=== PATIENT | male | born 1960 | race Caucasian/White ===

== ENCOUNTER 2021-02-23 20:08 | Emergency (ER) | payer BC, SELFPAY ==
--- NOTE | 2021-02-23 21:14 | XR_ITS ---
PROCEDURE INFORMATION: Exam: XR Left Wrist Exam date and time: 02/23/2021 9:14 PM Age: 60 years old Clinical indication: Injury or trauma; Other: Puncture wound to left wrist. ; Laceration; Patient HX: Patient was striking a piece of metal when a small piece broke off and went into his left wrist. Puncture site marked with ink pen. ; Additional info: Piece of steel hit wrist TECHNIQUE: Imaging protocol: XR Left wrist. Views: 3 or more views. COMPARISON: No relevant prior studies available. FINDINGS: Bones/joints: No evidence of acute fracture Soft tissues: 0.4 cm metallic foreign body in the soft tissues dorsally. IMPRESSION: 0.4 cm metallic foreign body in the soft tissues dorsally.
[2021-02-23 21:16] VITALS: BP 137/85; PULSE 74; RESP 19; TEMP 36.8; O2SAT 98; BMI 25.8
[2021-02-23 21:47] VITALS: BP 137/85; PULSE 74; RESP 19; TEMP 36.8; O2SAT 98
--- NOTE | 2021-02-23 22:08 | PC.NURSE ---
SOCIAL SERVICE DIRECTOR talking with
--- NOTE | 2021-02-23 22:13 | HMH.EDUTC ---
[facility] [place] Disposition Clinical Impression: Laceration of left hand with foreign body Qualifiers: Encounter type: initial encounter Qualified Code(s): S61.422A - Laceration with foreign body of left hand, initial encounter Disposition: Home, Self-Care Condition on Discharge: Good Instructions: DI for Removal of Foreign Body From Skin Additional Instructions: I spoke to Dr. Vasquez (orthopedics) regarding your hand. Since there are very important nerves and tendons in that part of your hand you need to see the orthopedic doctor for removal of this foreign body. Please call Dr. Vasquez's office first thing in the morning (after 8:00 am). Please be NPO after midnight tonight. You can eat and drink before midnight, but nothing by mouth after midnight because Dr. Vasquez plans to take you to surgery to remove this piece of metal. Take the antibiotics as directed. Once you see Dr. Vasquez, please follow his instructions and his medication guidance instead of mine. GO TO THE ER FOR ANY WORSENING SYMPTOMS OR CONCERNS TONIGHT Referrals: Charles Temple MD [Primary Care Provider] - Nik Vasquez MD [Staff Physician] - Time of Disposition: 22:20 Medical Decision Making - Medical Records Medical records reviewed: No: I reviewed the patient's medical records. - Osorio Inquiry Pt receiving controlled substance: No Vital Signs: 02/23/21 21:16 02/23/21 21:47 Temperature 98.3 F 98.3 F Temperature Source Oral Pulse Rate 74 Pulse Rate [Left Radial] 74 Respiratory Rate 19 19 Blood Pressure 137/85 Blood Pressure [Right Arm] 137/85 Blood Pressure Mean [Right Arm] 102 Blood Pressure Source [Right Arm] Automatic Cuff Blood Pressure Position [Right Arm] Sitting 02 Sat by Pulse Oximetry 98 Oxygen Delivery Method Room Air Orders (Tests/Meds): ED MEDICATIONS Discontinued Medications Generic Name Dose Route Start Last Admin Trade Name Freq PRN Reason Stop Dose Admin Ceftriaxone Sodium 1 gm 02/23/21 22:12 02/23/21 22:16 Ceftriaxone 1gm Vial IM 02/23/21 22:13 1 gm ONCE ONE Administration Protocol Lidocaine HCl 0 ml 02/23/21 22:12 02/23/21 22:16 Lidocaine 1% 5ml Pf Vial IM 02/23/21 22:13 2.1 ml ONCE ONE Administration Tetanus/Reduced Diphtheria/Acell Pertussis 0.5 ml 02/23/21 21:19 02/23/21 21:22 Tet/Diphth/Pert-Adult 0.5ml Syringe IM 02/23/21 21:20 0.5 ml .ONCE ONE Administration - Radiology Data #1 Image(s): Hand Image Reviewed: Yes I reviewed the patient's radiology image, Yes I have reviewed radiologist's interpretation Preliminary Findings: Abnormal PROCEDURE INFORMATION: Exam: XR Left Wrist Exam date and time: 02/23/2021 9:14 PM Age: 60 years old Clinical indication: Injury or trauma; Other: Puncture wound to left wrist. ; Laceration; Patient HX: Patient was striking a piece of metal when a small piece broke off and went into his left wrist. Puncture site marked with ink pen. ; Additional info: Piece of steel hit wrist TECHNIQUE: Imaging protocol: XR Left wrist. Views: 3 or more views. COMPARISON: No relevant prior studies available. FINDINGS: Bones/joints: No evidence of acute fracture Soft tissues: 0.4 cm metallic foreign body in the soft tissues dorsally. IMPRESSION: 0.4 cm metallic foreign body in the soft tissues dorsally. Medical Decision Narrative: I discussed this case and reviewed the x-rays with Dr. Wallace. His advice was to call orthopedics due to the depth of the piece of metal and beause this is a hand injury. So, Dr. Vasquez was contacted via telephone. [facility] [place] HPI - General Stated complaint: ao [id number] lAC L HAND Time Seen by Provider: 02/23/21 21:20 Mode of Arrival: Ambulatory Source of Information: Patient Limitations: No Limitations Description of Symptoms (Recalled from Triage Doc. by RN): c/o laceration on the top of left wrist. Pie
== END 2021-02-23 22:25 | disposition home or self-care (01) ==
LOC: ER 20:23 → UTC 20:23
PROVIDERS: Emergency Provider Nurse Practitioner Family; PCP Family Medicine
DX: S61.542A Puncture wound with foreign body of left wrist, initial encounter (principal); W22.09XA Striking against other stationary object, initial encounter; Y92.017 Garden or yard in single-family (private) house as the place of occurrence of the external cause; Z23 Encounter for immunization
CPT/HCPCS: 73110; 90471; 90715; 96372; 99202; G0463

== ENCOUNTER → 2021-02-24 11:17 | Outpatient (CLI) | payer BC, SELFPAY ==
[2021-02-24 11:19] LABS: Coronavirus 19, PCR Not Detected (NotDetected); Influenza A, PCR Not Detected (NotDetected); Influenza B, PCR Not Detected (NotDetected)
[2021-02-24 11:36] LABS: Basophils % 0.6 % (0.1-2.0); Eosinophils # 0.1 K/mm3 (0.0-0.4); Eosinophils % 2.4 % (0.1-12.0); Hematocrit 43.5 % (42.0-52.0); Hemoglobin 13.9 g/dL (14.1-18.0); Lymphocytes # 1.6 K/mm3 (0.7-4.5); Lymphocytes % 27.2 % (10-50); Mean Corpuscular Hemoglobin 28.6 pg (27.0-31.2); Mean Corpuscular Volume 89.4 fl (80-94); Mean Platelet Volume 9.4 fl (7.4-10.4); Monocytes # 0.5 K/mm3 (0.1-1.0); Monocytes % 8.1 % (1.7-9.3); Neutrophils # 3.6 K/mm3 (1.8-7.8); Neutrophils % 61.7 % (37.0-80.0); Platelet Count 166 K/mm3 (142-424); Red Blood Count 4.87 M/mm3 (4.60-6.20); Red Cell Distribution Width 12.8 % (11.5-17.5); White Blood Count 5.8 K/mm3 (4.8-10.8)
[2021-02-24 11:51] LABS: Anion Gap 9.7 mEq/L (5-15); Blood Urea Nitrogen 16 mg/dl (9-20); Calcium 9.1 mg/dl (8.4-10.2); Carbon Dioxide 31 mmol/L (22.0-30.0); Chloride 104 mmol/L (98-107); Estimated Glomerular Filt Rate 98 ml/min (>60); GFR (African American) 119 ML/MIN (>60); Glucose 93 mg/dl (74-100); Potassium 5.7 mmoL/L (3.5-5.1); Sodium 139 mmol/L (136-145)
== END ==
PROVIDERS: Visit Provider Orthopaedic Surgery
DX: Z01.818 Encounter for other preprocedural examination (principal); S61.422A Laceration with foreign body of left hand, initial encounter
CPT/HCPCS: 80048; 85025; U0003

== ENCOUNTER 2021-02-24 12:41 | Day surgery (SDC) | payer BC, SELFPAY ==
[2021-02-24] VITALS (8 sets, daily range): BP systolic 103–152; BP diastolic 42–71; PULSE 52–73; RESP 12–20; TEMP 36.1–36.5; O2SAT 96–98; BMI 25.7
--- NOTE | 2021-02-24 13:49 | HMH.ANESCL ---
[facility] Anesthesia Checklist - Patient Identification Patient Identification: Arm Band - Structural Data Admitted From: Home Planned Operative Procedure/s: Removal FB Left Hand Consent for Planned Operative Procedure(s) Verified: Yes Verified Documents: Surgical Consent, History and Physical - NPO Status Verified Time NPO: 00:00 - Additional verifications Anesthesia Reactions: No Hx Blood Transfusions: No Blood Transfusion Reaction: No - Airway Assessment C-Spine Mobility Assessed: Yes (mp2) TMJ Mobility Assessed: Yes Dentition: Good Dentition - Neurological Assessment Level of Consciousness: Awake, Alert - Anesthesia Plan Anesthesia Risk discussed: Yes Anesthesia Plan: Verified ASA Class: I Anesthesia Type: General [facility] History I have reviewed the patient's past medical history: Yes Medical History: Denies:: Cancer, Diabetes Mellitus Type 1, Diabetes Mellitus Type 2, Hyperlipidemia, Hypertension, Internal Pacemaker, Lung Disease, MRSA, Seizures *Have you ever received a pneumonia vaccine?: No *Have you received a flu vaccine this season?: No Other Medical History: Denies: Blood Transfusion Reaction Anesthesia experience/problems:: nac Laterality Cases: Bilateral: Arthroscopy Knee Other Surgeries: Yes: Colonoscopy. No: Pacemaker Amputation: No Fractures: No - *Social History Last grade of school completed: Advanced degree Smoking Status: Never smoker Alcohol Intake: current Alcohol Intake Frequency:: holidays/special occasions only Substance Use Type: denies use *Occupational Status:: employed Housing: house Household Members: spouse *Travel in the last 8 weeks: None Family Hx:: Cancer
--- NOTE | 2021-02-24 15:10 | XR_ITS ---
PROCEDURE: XR HAND LT 2V CLINICAL INDICATION: L HAND FOREIGN BODY REMOVAL COMPARISON: No exams were available for comparison FINDINGS: Fluoroscopy time: 41 seconds Multiple images are submitted during metallic foreign body removal long the dorsal aspect of the wrist. Eventually the foreign body was removed. IMPRESSION: Foreign body removal with C-arm guidance Dictated by: Jake Yusuf MD 02/24/2021 17:32 Jake Yusuf MD in [place] 02/24/2021 17:32
--- NOTE | 2021-02-24 15:30 | P.PN_ITS ---
[facility] Anesthesia Record Part I Intake, IV Amount: 800 Estimated blood loss (mL): 0 Urine output (mL): 0 Blood Pressure: 128/65 SaO2: 96 Pulse Rate: 65 Respiratory Rate: 12 Temperature: 97 F Patient is:: Awake, Stable Stable to PACU at:: 15:25
--- NOTE | 2021-02-24 20:55 | HMH.OPNOTE ---
Date of procedure: 03/10/21 Pre-op Diagnosis:: Foreign body, left wrist Post-op Diagnosis:: Same Procedure performed:: Removal of foreign body, left wrist Surgeon:: Nik Vasquez MD MANUFACTURER'S REPRESENTATIVE:: Matthew Mcdermott Anesthesia: LMA Estimated blood loss (mL): 1 Clinical Note:: Patient is a 60 year old right hand dominant male who presented to the office with history of foreign body into the back of his left wrist. He reports he was working on a piece of farm equipment yesterday evening when a fragment of steel chipped off and penetrated into the back of his left wrist. He reports he was seen in the [facility] last night where they obtained an xray, after which he was referred to orthopedics for further management. Patient also received an antibiotic injection and tetanus vaccine in the ER. He states that they also prescribed oral antibiotics but he has not picked up the prescription yet. Today he says he is doing well and reports pain over the back of the left wrist. He rates his pain a 2 out of 10 at rest and a 4 out of 10 at its worse. He reports he has been using ice on and off to help alleviate his pain. He is able to move all fingers, but does report some stiffness. He reports no distal numbness or tinging. There is no history of any fractures or surgeries to the left hand. He is a non smoker. 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 He is overall healthy and does not take any regular medications. Examination of the left hand showed a small entry wound over the dorsum of the hand measuring about half a cm in size; it is clotted over and no active bleeding or discharge noted. There is minimal swelling around the wound on the back of the wrist and hand. Diffusely tender around the entry wound. Neurovascularly intact distally; capillary refill is brisk and all the fingers are well-perfused; 2+ radial pulses noted. Sensation is intact to light touch throughout Movements of the left wrist are somewhat limited with pain; demonstrates full range of elbow, forearm and finger movements. Clinically all the extensor tendons are intact. X-rays are showing a metallic foreign body in the soft tissues over the dorsal aspect of the left wrist. Please refer to my office note for full details. Operative findings:: A small metallic foreign body measuring less than half a centimeter noted deep under the extensor retinaculum. Finding of foreign body was somewhat difficult as no obvious defect was noted in the extensor retinaculum. I had to use C-arm control for guidance to find the metallic foreign body. The extensor tendons appeared intact without any damage. No obvious contamination was noted. No vascular or nerve injury noted. Operative note:: Prior to surgery, I met the patient in the preoperative area and again discussed about management options including both nonsurgical and surgical. Patient is keen to proceed with surgical remediation to remove the foreign body. I have again discussed the details of the procedure, risks and benefits, alternatives and the expected outcomes. I have discussed how there is a small but real possibility of not being able to find/remove the foreign body. I have also explained how additional surgery may be required if there are any complications or the wound gets infected. We have also discussed the option of nonsurgical treatment. Patient expressed a full understanding and wished to proceed with surgery. A physical examination was performed and findings documented. The operative site was marked and initialed by me. Patient understood the risks, agreed to proceed with surgery, signed the consent form and no guarantees or assurances were given or implied. The patient was brought to the operating room and placed supine on the table. The left upper extremity was placed over an arm table. All the bony prominences were appropriately padded. A general anesthesia was adminis
--- NOTE | 2021-02-25 14:25 | HMH.ANESII ---
[facility] Anesthesia Record Part II Discharge Time: 15:55 Destination: Surgical Day Care (OP Surgery) PACU nurse assessment reviewed?: Yes Patient Condition:: Good Anesthesia Complications:: None Swallowing reflex intact?: Yes Cyanosis?: No Blood Pressure: 128/66 Pulse Rate: 55 Temperature: 97 F Mental Status: Alert & Oriented Pain level:: 0 Nausea and/or vomitting:: None Intake, IV Amount: 0
[2021-02-25 14:26] VITALS: BP 128/66; PULSE 55; TEMP 36.1
== END 2021-02-24 16:31 | disposition home or self-care (01) ==
LOC: OR 12:45
PROVIDERS: PCP Family Medicine; Visit Provider Orthopaedic Surgery
PROC: (CPT 20103; principal; 2021-02-24 14:15)
DX: S61.422A Laceration with foreign body of left hand, initial encounter (principal); W22.8XXA Striking against or struck by other objects, initial encounter; Y93.89 Activity, other specified; Y92.79 Other farm location as the place of occurrence of the external cause
CPT/HCPCS: 20103; 73120; 76000; 96374; J2405

== ENCOUNTER → 2021-03-23 08:57 | Outpatient (CLI) | payer BC, SELFPAY ==
--- NOTE | 2021-03-23 09:01 | XR_ITS ---
PROCEDURE: XR WRIST RT MIN 3V CLINICAL INDICATION: right wrist pain; CTS COMPARISON: CR XR WRIST LT MIN 3V from 02/23/2021 FINDINGS: No fracture or dislocation. No lytic or blastic change. There is normal mineralization. There are mild osteoarthritic changes at the metacarpophalangeal junction. Other findings:None. IMPRESSION: Negative wrist. 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
== END ==
PROVIDERS: PCP Family Medicine; Visit Provider Orthopaedic Surgery
DX: M25.531 Pain in right wrist (principal)
CPT/HCPCS: 73110

== ENCOUNTER → 2021-11-29 08:40 | Outpatient (CLI) | payer BC, SELFPAY ==
--- NOTE | 2021-11-29 08:43 | XR_ITS ---
FINAL REPORT CLINICAL HISTORY: LT Hand injury, PAIN FINDINGS: LEFT HAND: 3 views of the left hand were obtained. There are mild degenerative changes. There is a 3 mm bony fragment volar to the 2nd PIP joint. This likely represents an avulsion fracture from the 2nd middle phalanx and is of uncertain age, favor subacute or chronic. IMPRESSION: Bony fragment volar to the 2nd PIP joint is favored subacute or chronic. Reviewed, Interpreted and Dictated by Jacob Peres III, MD Transcribed by Eloy Pace Authenticated by Jacob Peres III, MD on 11/29/2021 09:55:50 AM [facility]
== END ==
PROVIDERS: PCP Family Medicine; Visit Provider Orthopaedic Surgery
DX: S61.422A Laceration with foreign body of left hand, initial encounter (principal)
CPT/HCPCS: 73130

== ENCOUNTER → 2022-01-27 11:03 | Outpatient (CLI) | payer BC, SELFPAY ==
[2022-01-27 11:11] LABS: Microscopic, Urine URINE MICROSCOPIC (MICROSCOPIC)
[2022-01-27 11:25] LABS: Basophils # 0.2 K/mm3 (0-0.2); Basophils % 2.5 % (0.1-2.0); Eosinophils # 0.2 K/mm3 (0.0-0.4); Eosinophils % 3.4 % (0.1-12.0); Hematocrit 45.4 % (42.0-52.0); Hemoglobin 14.8 g/dL (14.1-18.0); Lymphocytes # 2.1 K/mm3 (0.7-4.5); Lymphocytes % 34.3 % (10-50); Mean Corpuscular HGB Conc 32.6 g/dL (31.8-35.4); Mean Corpuscular Hemoglobin 29.8 pg (27.0-31.2); Mean Corpuscular Volume 91.4 fl (80-94); Mean Platelet Volume 10.6 fl (7.4-10.4); Monocytes # 0.6 K/mm3 (0.1-1.0); Monocytes % 9.4 % (1.7-9.3); Neutrophils % 50.4 % (37.0-80.0); Platelet Count 183 K/mm3 (142-424); Red Blood Count 4.97 M/mm3 (4.60-6.20); Red Cell Distribution Width 13.6 % (11.5-17.5)
[2022-01-27 11:36] LABS: Appearance,Urine CLEAR (Clear); Bilirubin,Urine Negative (Negative); Blood, Urine Negative (Negative); Color,Urine YELLOW (Yellow); Glucose,Urine (UA) Negative (Negative); Ketones,Urine Negative (Negative); Leukocyte Esterase,Urine Negative (Negative); Nitrate,Urine Negative (Negative); PH,Urine 5.5 (5.0-8.5); Protein,Urine Negative (Negative); Specific Gravity, Urine 1.025 (1.005-1.030); Urobilinogen,Urine 0.2 EU/dl (0.2)
[2022-01-27 11:51] LABS: Chloride 104 mmol/L (98-107); Potassium 4.3 mmoL/L (3.5-5.1); Sodium 136 mmol/L (136-145); WBC,Urine Occasional #/hpf (0-3)
[2022-01-27 11:52] LABS: Bacteria,Urine 2+ /lpf; Squamous Epithelial Cell,Urine Occasional #/hpf (0-5)
[2022-01-27 11:53] LABS: Alanine Aminotransferase 15 U/L (12-78)
[2022-01-27 11:54] LABS: Albumin Level 4.2 g/dl (3.5-5.0); Albumin/Globulin Ratio 1.8 (1.1-1.8); Alkaline Phosphatase 74 U/L (38-126); Anion Gap 8.3 mEq/L (5-15); Aspartate Amino Transferase 26 U/L (17-59); Bilirubin,Total 0.4 mg/dl (0.2-1.3); Calcium 9.3 mg/dl (8.4-10.2); Carbon Dioxide 28 mmol/L (22.0-30.0); Globulin 2.3 g/dL (1.3-3.2); Glucose 97 mg/dl (74-100); Total Protein,Serum 6.5 g/dl (6.3-8.2)
[2022-01-27 11:59] LABS: Blood Urea Nitrogen 15 mg/dl (9-20); Estimated Glomerular Filt Rate 98 ml/min (>60); GFR (African American) 119 ML/MIN (>60)
== END ==
PROVIDERS: PCP Internal Medicine Adolescent Medicine; Visit Provider Orthopaedic Surgery
DX: G56.01 Carpal tunnel syndrome, right upper limb (principal)
CPT/HCPCS: 36415; 80053; 81001; 85025; 87086

== ENCOUNTER → 2022-08-08 13:17 | Outpatient (POV) | payer BC, SELFPAY | PROVIDERS: Visit Provider Dermatology | DX: Z00.00 Encounter for general adult medical examination without abnormal findings (principal) ==

== ENCOUNTER 2023-08-30 10:19 | Outpatient (CLI) | payer BC, SELFPAY ==
--- NOTE | 2023-08-30 10:23 | CA_ITS ---
FINAL REPORT TECHNIQUE: Color Doppler, duplex Doppler and compression sonography of the right lower extremity venous system was performed. CLINICAL HISTORY: RIGHT CALF PAIN,PT HAD KNEE INJURY SEVERAL DAYS AGO COMPARISON: None FINDINGS: There is no evidence of deep venous thrombosis from the level of the groin to the calf. The veins are patent and compressible. IMPRESSION: No evidence of deep venous thrombosis right lower extremity. Reviewed, Interpreted and Dictated by Jacob Peres III, MD Transcribed by July Arango Authenticated and . [facility]
== END 2023-08-30 23:59 ==
PROVIDERS: PCP Family Medicine; Visit Provider Nurse Practitioner Family
DX: M79.661 Pain in right lower leg (principal)
CPT/HCPCS: 93971